=== PATIENT | male | born 1995 | race Caucasian/White ===

== ENCOUNTER 2016-07-29 21:45 | Emergency (ER) | payer BC ==
[~2016-07-29 21:45] MED LIST: ABILIFY10 M1 PO; ABILIFY2 MG; ABILIFY5 M1 PO; CLARITIN10 M6 PO; DIAZEPAM1 EAC1; GABAPENTIN100 M1 PO; HYDROXYZINE HCL50 M1 PO; LAMICTAL100 M2 PO; LAMICTAL2 MG; LAMICTAL200 M2 PO; LEXAPRO5 M1 PO; NEURONTIN100 M1 PO; PRILOSEC20 M1 PO; PROZAC20 M3 PO; TOPAMAX100 M2 PO; TYLENOL EXTRA500 M1 PO; [UNRECOGNIZED DRUG - OTHER]
[2016-07-29] MEDS ORDERED: KEPPRA250 M1 PO (21:57)
[2016-07-29] MEDS ORDERED: LATUDA20 M1 PO (22:27)
[2016-07-29 22:36] LABS: BASO % 0.5 % (0-2); EOS % 1.8 % (0-7); EOSINOPHIL ABSOLUTE COUNT 0.2 tho/cmm (0.0-0.7); HCT-HEMATOCRIT 45.7 % (36.0-53.5); HGB-HEMOGLOBIN 15.9 gm/dl (13.5-17.0); IMMATURE GRANULOCYTES ABSOLUTE 0.02 tho/cmm (0-0.03); IMMATURE GRANULOCYTES PERCENT 0.2 % (0-0.3); LYMPH ABSOLUTE COUNT 1.7 tho/cmm (0.8-4.5); MCH (MEAN CORPUSCULAR HGB) 30.1 pg (28.0-32.0); MCHC MEAN CORPUSCULAR HGB CONC 34.8 % (32.0-36.0); MCV (MEAN CELL VOLUME) 86.4 fl (82.0-96.0); MEAN PLATELET VOLUME 9.6 cmc (9.4-12.4); MONO % 10.1 % (0-12); MONOCYTE ABSOLUTE COUNT 0.8 tho/cmm (0.0-1.2); NEUTROPHIL ABSOLUTE COUNT 5.4 tho/cmm (1.6-8.0); NEUTROPHIL-AUTOMATED 5.4 tho/cmm (1.6-8.0); NEUTROPHILS % 66.4 % (40-80); PLATELET COUNT 210 tho/cmm (150-450); RED BLOOD COUNT 5.29 mil/cmm (4.40-5.70); RED CELL DISTRIBUTION WIDTH 12.9 % (12.4-16.4); WHITE BLOOD COUNT 8.1 tho/cmm (4.0-10.0)
[2016-07-29 22:58] LABS: ALBUMIN 3.7 g/dl (3.5-5.0); ALKALINE PHOSPHATASE 99 U/L (60-225); ALT/SGPT 45 U/L (12-78); BILIRUBIN,TOTAL 0.2 mg/dl (0.0-1.5); BLOOD UREA NITROGEN 17 mg/dl (6-24); CALCIUM 9.1 mg/dl (8.5-10.5); CARBON DIOXIDE-VENOUS 28 mmol/L (22-32); CHLORIDE 108 mmol/l (96-110); CREATININE 1.06 mg/dl (0.60-1.30); GLUCOSE 91 mg/dL (70-110); PROLACTIN 7 ng/ml (2.5-17.4); SODIUM 143 mmol/L (135-145); eGFR VALUE FOR BLACK >90 mL/Min
[2016-07-29 23:05] LABS: ANION GAP 11 mmol/L (0-20); AST/SGOT 23 U/L (10-40); POTASSIUM 4.1 mmol/L (3.7-5.1)
== END 2016-07-29 23:41 ==
LOC: EDMED 21:45
PROVIDERS: Emergency Medicine
DX: G40.909 Epilepsy, unspecified, not intractable, without status epilepticus (principal); Z79.899 Other long term (current) drug therapy